=== PATIENT | male | born 1975 | race Caucasian/White ===

== ENCOUNTER 2018-04-23 09:03 | Emergency (ER) | payer BC, OTHER ==
--- NOTE | 2018-04-23 09:05 | PDOC ---
History of Present Illness - General Chief Complaint: Pain Stated Complaint: DULL ACHE MID STERNAL CHEST Time Seen by Provider: 04/23/18 09:04 History Source: Patient Exam Limitations: No Limitations - History of Present Illness Initial Comments: 04/23/18 09:06 42y M hx of pafib (not on a/c, formerly on metoprolol), daily etoh, presents with an itnermittent substernal/epigastric chest pain for a the past 3 days. Pt notes the pain was gardual onset, intermittent, aching/pressure like and nonradaiting. the pain is dull and aching in nature, approx 3/10 in severity. Pt notse the pain seemed to worsen last night so pt decided to c ome in for evaluation. pt denies any sob, rahman, cp with exertion, diaphorsis, n/v. NO change in pain with eating or food intake. No prior cp in the past. no change of the pain with mvoment of his arms or torso surgical hx: hiatal hernia repair, partial knee replacement social history: daily alcohol ~3 drinks daily, denies smoking or other recreational drug use Family hx: htn, no known cardiac disease Past History - Past Medical History Allergies/Adverse Reactions: Allergies Allergy/AdvReac Type Severity Reaction Status Date / Time No Known Allergies Allergy Verified 04/23/18 09:04 Home Medications: Ambulatory Orders NK [No Known Home Medication] 04/23/18 Anemia: No Asthma: No Cancer: No Cardiac Disorders: No CVA: No COPD: No Dementia: No Diabetes: No Dialysis: No GI Disorders: No Disorders: No HTN: No Hypercholesterolemia: No Kidney Stones: No Liver Disease: No Seizures: No Thyroid Disease: No - Immunization History Immunization Up to Date: Yes - Suicide/Smoking/Psychosocial Hx Smoking Status: No Smoking History: Never smoked Number of Cigarettes Smoked Daily: 0 Hx Alcohol Use: Yes Review of Systems - Review of Systems Able to Perform ROS?: Yes Comments:: 04/23/18 09:56 Constitutional - no reported Fever, Chills, HEENT: no reported vision changes, sore throat Respiratory: no reported cough, sob, hemoptysis Cardiac: +chest pain, no reported palpitations, light headedness, leg swelling Abd/GI: no reported abd pain, nausea, vomiting, blood per rectum, melena, diarrhea : no reported dysuria, frequency, discharge Musculskelatal - no reported back pain, joint swelling skin - no reported bruising, erythema, rash neurological: no reported headache, numbness, focal weakness, tingling, ataxia, hematologic: no reported easy bruising, easy bleeding *Physical Exam - Vital Signs Last Vital Signs Temp Pulse Resp BP Pulse Ox 98.5 F 84 16 128/89 98 04/23/18 09:04 04/23/18 12:17 04/23/18 12:17 04/23/18 12:17 04/23/18 12:17 - Physical Exam Comments: 04/23/18 10:00 GENERAL: The patient is awake, alert, and fully oriented, Nontoxic - in no acute distress. HEAD: Normocephalic, atraumatic. EYES: extraocular movements intact, sclera anicteric, conjunctiva clear. ENT: Normal voice, Moist mucous membranes. NECK: Normal range of motion, supple LUNGS: Breath sounds equal, clear to auscultation bilaterally. No wheezes, no rhonchi, no rales. HEART: Regular rate and rhythm, normal S1 and S2 without murmur, rub or gallop. ABDOMEN: Soft, nontender, normoactive bowel sounds. No guarding, no rebound. . No CVA tenderness EXTREMITIES: Normal range of motion, no edema. NEUROLOGICAL: No facial assymetry, Normal speech, PSYCH: Normal mood, normal affect. SKIN: Warm, Dry, normal turgor, Heart Score/ECG Review - ECG Impressions Comment:: 04/23/18 10:00 Twelve-lead EKG was performed and reviewed by me. There is normal sinus rhythm with a normal rate. rate of 91 Left axis deviation Right bundle-branch block No st changes suggestive of acute ischemia No prior EKG for comparison Moderate Sedation - Procedure Monitoring Vital Signs: Procedure Monitoring Vital Signs Temperature 98.5 F 04/23/18 09:04 Pulse Rate 84 04/23/18 12:17 Respiratory Rate 16 04/23/18 12:17 Blood Pressure 128/89 04/23/18 12:17 O2 Sat by Pulse Oximetry (%) 98 04/23/18 12:17 ED Treatment Course - LABORATORY CBC & Chemistry Diagram: 04/23/18 09:31 04/23/18 09:31 - ADDITIONAL ORDERS Additional order review: Laboratory Results 04/23/18 04/23/18 04/23/18 09:31 09:31 09:31 Sodium 137 Potassium 4.3 Chloride 107 Carbon Dioxide 23 Anion Gap 7 L BUN 14 Creatinine 1.0 Creat Clearance w eGFR > 60 Random Glucose 99 Calcium 9.3 Total Bilirubin 0.6 AST 30 ALT 30 Alkaline Phosphatase 55 Creatine Kinase 133 Troponin I < 0.03 Total Protein 7.6 Albumin 4.4 Lipase 129 04/23/18 09:31 RBC 4.77 MCV 89.4 MCHC 33.5 RDW 12.6 MPV 8.6 Neutrophils % 55.0 Lymphocytes % 35.1 Monocytes % 8.5 Eosinophils % 0.9 Basophils % 0.5 - RADIOLOGY Radiology Studies Ordered: Category Date Time Status CHEST PA & LAT [RAD] Stat Radiology 04/23/18 09:12 Completed - Medications Given in the ED: ED Medications Discontinued Medications Generic Name Dose Route Start Last Admin Trade Name Freq PRN Reason Stop Dose Admin Al Hydroxide/Mg Hydroxide 30 ml 04/23/18 09:22 04/23/18 09:36 Mylanta Suspension - PO 04/23/18 09:23 30 ml ONCE ONE Administration Aspirin 162 mg 04/23/18 09:12 04/23/18 09:36 Asa - PO 04/23/18 09:13 162 mg ONCE ONE Administration Famotidine/Sodium Chloride 20 mg in 50 mls @ 100 mls/hr 04/23/18 09:22 09:36 Pepcid 20 Mg Premixed Ivpb - IVPB 04/23/18 09:51 100 mls/hr ONCE ONE Administration Medical Decision Making - Medical Decision Making 04/23/18 10:02 42-year-old gentleman history of proximal A. fib, not currently on anticoagulation presenting with a complaint of nonexertional, nonradiating, non positional epigastric/substernal chest pain/aching that is approximately 3/10. On exam the patient is well-appearing, in no distress, with normal vital signs. Differential for the patient's symptoms includes but is not limited to gastritis , pancreatitis, pleuritis, low suspicion for acs Will obtain CBC CMP, troponin, lipase. EKG is nondiagnostic, the patient has multiple to our ER in the past for superficial injuries which were reviewed. no prior ekg for comparison We'll give the patient Pepcid, Maalox for comfort 04/23/18 11:56 pt feling improved labs unremarkable awaiting lipase as pts pain onset was >6 hrs, ago 1 set is sufficient to screen for acs. 04/23/18 12:24 pain essentially resolved no sob/rahman, cp on amgulation will dc th ept wiht pm fu and cardioogy fu as an outpatient return precautions were discussed I discussed the physical exam findings, ancillary test results and final diagnoses with the patient. I answered all of the patient's questions. The patient was satisfied with the care received and felt comfortable with the discharge plan and treatment plan. The patient will call their primary care physician within 24 hours to arrange follow-up and will return to the Emergency Department with any new, persistent or worsening symptoms. *DC/Admit/Observation/Transfer Diagnosis at time of Disposition: Atypical chest pain - Discharge Dispostion Disposition: HOME Condition at time of disposition: Improved Decision to Admit order: No - Referrals Referrals: Ervin Dozier [Non Staff, Medical] - - Patient Instructions Printed Discharge Instructions: DI for Atypical Chest Pain Additional Instructions: Return to the emergency department immediately with ANY new, persistent or worsening symptoms including chest pain, shortness of berath, sweating, nausea or vomtiing or any other concerns,. You MUST call and follow up with your doctor in 2-3 days for further evaluation of your symptoms. Results were discussed with you. Please make sure your doctor reviews the results of your emergency evaluation. Print Language: MEXICAN - Post Discharge Activity
[2018-04-23 09:12] VITALS: TEMP 98.5; BMI 27.1
[2018-04-23] MEDS ORDERED: ASPIRIN 81 MG CHEWABLE TABLETS PO ONE (09:12)
[2018-04-23] MEDS ORDERED: FAMOTIDINE 20 MG/50 ML IVPB 20 MG/50 ML MG IVPB ONE ×2 (09:22→09:33)
[2018-04-23] MEDS ORDERED: MAG HYDROX/AL HYDROX/SIMETH -MYLANTA- ORAL SUSPENSION PO ONE (09:22)
[2018-04-23] MEDS ORDERED: ASPIRIN 81 MG CHEWABLE TABLETS ONE (09:33)
[2018-04-23] MEDS ORDERED: MAG HYDROX/AL HYDROX/SIMETH 30 ML UNIT-DOSE CUP ONE (09:33)
[2018-04-23 09:39] LABS: BASO % 0.5 % (0-2.0); EOS % 0.9 % (0-4.5); HEMATOCRIT 42.7 % (35.4-49); HEMOGLOBIN 14.3 GM/dl (11.7-16.9); LYMPH % 35.1 % (8-40); MCH 29.9 pg (25.7-33.7); MCHC 33.5 g/dl (32.0-35.9); MEAN CELL VOLUME 89.4 fl (80-96); MEAN PLT VOLUME 8.6 fl (7.5-11.1); MONO % 8.5 % (3.8-10.2); PLATELET COUNT 177 K/MM3 (134-434); RBC 4.77 M/mm3 (4.00-5.60); RDW 12.6 % (11.9-15.9); WHITE BLOOD COUNT 5.2 K/mm3 (4.0-10.8)
[2018-04-23 09:59] LABS: ALBUMIN 4.4 g/dl (3.4-5.0); ALK PHOS 55 U/L (45-117); ANION GAP 7 MMOL/L (8-16); BILIRUBIN,TOTAL 0.6 mg/dl (0.2-1); BLOOD UREA NITROGEN 14 mg/dl (7-18); CALCIUM 9.3 mg/dl (8.5-10); CHLORIDE 107 mmol/L (98-107); CO2 23 mmol/L (21-32); GLUCOSE,RANDOM 99 mg/dl (74-106); POTASSIUM 4.3 mmol/L (3.5-5.1); SGOT/AST 30 U/L (15-37); SGPT/ALT 30 U/L (13-61); SODIUM 137 mmol/L (136-145); TOT PROT 7.6 g/dl (6.4-8.2)
[2018-04-23 12:17] VITALS: BP 128/89; PULSE 84
--- NOTE | 2018-04-23 14:04 | EKG ---
Test Reason : Blood Pressure : / mmHG Vent. Rate : 091 BPM Atrial Rate : 091 BPM P-R Int : 166 ms QRS Dur : 126 ms QT Int : 350 ms P-R-T Axes : 020 -33 016 degrees QTc Int : 430 ms NORMAL SINUS RHYTHM LEFT AXIS DEVIATION RIGHT BUNDLE BRANCH BLOCK ABNORMAL ECG WHEN COMPARED WITH ECG OF 28-AUG-1999 13:37, RIGHT BUNDLE BRANCH BLOCK HAS REPLACED NON-SPECIFIC INTRA-VENTRICULAR CONDUCTION BLOCK Confirmed by [email or web address] MONCADA, DELFIN ([id number]) on 04/23/2018 2:04:15 PM Referred By: AARTI WOODSON Confirmed By:DELFIN RUSHING MD
== END 2018-04-23 12:30 | disposition home or self-care (01) ==
LOC: FER 09:03
PROC: 3E033GC Introduction of Other Therapeutic Substance into Peripheral Vein, Percutaneous Approach (ICD-10-PCS; principal; 2018-04-23)
DX: R07.89 Other chest pain (principal); I48.91 Unspecified atrial fibrillation
CPT/HCPCS: 36415; 71046-TC-FY; 80053; 82550; 83690; 84484; 85025; 93005; 99283-25

== ENCOUNTER 2018-10-03 09:07 | Emergency (ER) | payer OTHER, BC | END 2018-10-03 10:08 | disposition home or self-care (01) | LOC: JERFT 09:07 ==